=== PATIENT | female | born 1965 | race Caucasian/White ===

== ENCOUNTER 2018-08-08 21:11 | Emergency (ER) | payer SELFPAY ==
[~2018-08-08] VITALS: Ht 167.6 cm; Wt 75.0 kg
[~2018-08-08 21:11] MED LIST: ALPR0.5T; BUPR300T52; LEVO75TA; TRAM100T27
[2018-08-08] MEDS ORDERED: ACETAMINOPHEN 325MG TABLET PO ONE (23:00)
[2018-08-08] MEDS ORDERED: TETANUS, DIPHTHERIA, PERTUSSIS VAC/PF 0.5ML (>7YR OLD) IM ONE (23:00)
[2018-08-09] MEDS ORDERED: BACITRACIN ZINC OINT UDPKT TOP ONE (00:15)
[2018-08-09 01:07] VITALS: BP 89/40
== END 2018-08-09 01:02 | disposition home or self-care (01) ==
LOC: ER 21:11
DX: S01.01XA Laceration without foreign body of scalp, initial encounter (principal); F41.9 Anxiety disorder, unspecified; F32.9 Major depressive disorder, single episode, unspecified; E03.9 Hypothyroidism, unspecified; F17.290 Nicotine dependence, other tobacco product, uncomplicated; Z98.890 Other specified postprocedural states; W20.8XXA Other cause of strike by thrown, projected or falling object, initial encounter; Y93.41 Activity, dancing; Y92.89 Other specified places as the place of occurrence of the external cause; Y99.8 Other external cause status
CPT/HCPCS: 72100; 90471; 90715; 99284; 99406